=== PATIENT | male | born 1970 | race Caucasian/White ===

== ENCOUNTER → 2017-03-30 | Outpatient (CLI) | payer OTHER, BC ==
[~2017-03-30] MED LIST: PROB1CAP41 PO
[2017-03-30 13:39] LABS: BLOOD UREA NITROGEN 16 mg/dl (7-18); BUN/CREATININE RATIO 14.4 (10-20); CALCIUM 8.8 mg/dl (8.5-10.1); CARBON DIOXIDE 28 mmol/L (21-32); CHLORIDE 104 mmol/L (98-107); CREATININE 1.08 mg/dl (0.60-1.40); GLUCOSE 103 mg/dl (70-99); POTASSIUM 4.4 mmol/L (3.5-5.1); SODIUM 137 mmol/L (136-145)
[2017-03-30 13:40] LABS: BASO % 0.5 %; BASO ABS # 0.04 K/uL (0-0.2); COMPLETE YES; EOS % 3.2 %; HEMATOCRIT 45.3 % (42-52); IG% 0.4 %; LYMPH % 35.6 %; LYMPH ABS # 3.04 K/uL (1.2-3.4); MEAN CELL VOLUME 92.8 fL (80-100); MEAN CORPUSCULAR HEMOGLOBIN 31.8 pg (25-34); MEAN CORPUSCULAR HGB CONC 34.2 g/dl (32-36); MEAN PLATELET VOLUME 10.8 fL (7.4-10.4); MONO % 11.7 %; NEUT % 48.6 %; PLATELET COUNT 301 K/uL (130-400); RED BLOOD COUNT 4.88 M/uL (4.7-6.1); WHITE BLOOD COUNT 8.55 K/uL (4.8-10.8)
== END | disposition home or self-care (01) ==
LOC: C.LABBC 10:44
PROVIDERS: ATTEND Orthopaedic Surgery
DX: Z01.812 Encounter for preprocedural laboratory examination (principal); M25.522 Pain in left elbow

== ENCOUNTER → 2017-04-07 | Day surgery (SDC) | payer OTHER, BC ==
[2017-03-30 15:15] VITALS: Ht 180.3 cm; Wt 90.9 kg
[~2017-04-07] VITALS: Ht 180.3 cm; Wt 90.9 kg
[~2017-04-07] MED LIST changes: +ALBUTEROL HFA INHALER 8.5 GM INH ONE; +ATROPINE SULFATE 0.1 MG/ML 5ML SYR IV PRN; +BUPIVACAINE/EPINEPHRINE 0.25% 1:200,000 30 ML VIAL ONE; +CEFAZOLIN 2000MG IV PUSH 10 ML IV SCH; +DEXAMETHASONE SOD INJ 4 MG/ML VIAL ONE; +EpHEDrine SULFATE INJ 50 MG/ML AMP IV PRN; +FENTANYL CITRATE INJ 50 MCG/1 ML 2 ML VIAL IV PRN; +FENTANYL CITRATE INJ 50 MCG/1 ML 2 ML VIAL ONE; +HydrALAZINE HCL 20 MG/ML VIAL IV. STA; +HydrALAZINE HCL 20 MG/ML VIAL ONE; +LACTATED RINGER'S 1000ML 1,000 ML IV SCH; +LIDOCAINE HCL 2% 2 ML VIAL (20MG/ML) ONE; +MIDAZOLAM HCL 1 MG/ML 2ML VIAL ONE; +ONDANSETRON INJ 2 MG/ML 2 ML VIAL IV PRN; +ONDANSETRON INJ 2 MG/ML 2 ML VIAL ONE; +OXYC-57 PO; +OXYCODONE/ACETAMINOPHEN 5-325 TAB PO PRN; +PROPOFOL IV EMULSION 10 MG/ML 20 ML VIAL IV ONE; +ROPIVACAINE 0.5% 5 MG/ML 30 ML VIAL ONE; +SODIUM CHLORIDE 0.9% 1000ML 1,000 ML IV SCH; +SUCCINYLCHOLINE CHLORIDE 20 MG/ML 10 ML VIAL IV ONE
--- NOTE | 2017-04-07 06:45 | History & Physical Bridge - [place] ---
H&P Re-Evaluation Bridge Note: I have examined the patient, reviewed the History & Physical and in the interval since the performance of the History & Physical I have noted the following changes of clinical significance: No changes noted
--- NOTE | 2017-04-07 08:26 | [facility] Post Operative Brief Note ---
Immediate Operative Summary Operative Date Apr 07, 2017. Pre-Operative Diagnosis Left distal biceps tendon rupture Post-Operative Diagnosis Same as preop Procedure(s) Performed Left Distal Biceps Tendon Repair Surgeon Dr. Courtney Dinkey Skinner Surgeon(s) Yousuf Newton PA-C Estimated Blood Loss 5 mL Findings as above Specimens None Complication(s) None Disposition Recovery Room / PACU
--- NOTE | 2017-04-07 08:53 | Discharge Instructions-SurgCtr ---
Discharge Instructions Date of Service Apr 07, 2017. Visit Reason for Visit: Left Distal Biceps Tendon Rupture Discharge Discharge Diagnosis / Problem: SAME ABOVE Discharge Goals Goal(s): Decrease discomfort, Improve function Activity Recommendations Activity Limitations: as noted below Lifting Limitations: until after follow-up appointment Exercise/Sports Limitations: until after follow-up appointment Anesthesia . Post Anesthesia Instructions: If you have had General Anesthesia or IV Sedation: * Do not drive today. * Resume driving when surgeon permits. * Do not make important decisions or sign legal documents today. * Call surgeon for: 1. Temperature elevations greater than 101 degrees F. 2. Uncontrollable pain. 3. Excessive bleeding. 4. Persistent nausea and vomiting. 5. Medication intolerance (nausea, vomiting or rash). * For nausea and vomiting use only clear liquids such as: tea, soda, bouillon until nausea subsides, then gradually increase diet as tolerated. * If you have any concerns or questions, call your surgeon's office. If physician is unavailable and it is an emergency, call 911 or go to the nearest emergency room. . Instructions / Follow-Up Instructions / Follow-Up MEDICATIONS: * Resume previous medications unless instructed otherwise by your surgeon. * Always take pain medication on a full stomach or with food to avoid upset stomach. * Do not drink alcohol or drive while taking narcotics. * Ibuprofen or Tylenol may be taken if narcotic not needed. SPECIAL CARE INSTRUCTIONS: __ None _X_ Keep extremity elevated and iced x 48 hours; apply ice 20-30 minutes 8-10 times/day. May remove at night. _X_ Sling _X_24 hrs/day __ Remove at night __ Shoulder Immobilizer __ 24 hrs/day __ Remove at night _X_ Dressing _X_ Maintain until seen in office, may shower with plastic over site __ Remove dressings in 24-48 hours and then may shower __ Cover incisions with band-aids after showering __ Do not remove steri-strips Call physician if chills or temperature rises above 102 degrees or pain unrelieved by prescribed pain medications at . . Diet Recommendations Home Diet: no limitations Fluid Restriction: None Procedures Procedures Performed: Left Distal Biceps Tendon Repair Pending Studies Studies pending at discharge: no Work Instructions Return To Work: after follow-up Medical Emergencies . Who to Call and When: Medical Emergencies: If at any time you feel your situation is an emergency, please call 911 immediately. . Non-Emergent Contact Non-Emergency issues call your: Primary Care Provider Call Non-Emergent contact if: you have a fever, temperature is above 101.5 . . "Provider Documentation" section prepared by Yousuf Newton. .
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
[2017-04-07 10:06] VITALS: TEMP 36.3
--- NOTE | 2017-04-07 10:29 | Anesthesia Progress Nt - [facility] ---
Anesthesia Post Op Note Date & Time Apr 07, 2017 at 10:28 Vital Signs Pain Intensity: 4 Vital Signs Past 12 Hours Date Time Temp Pulse Resp B/P (MAP) Pulse Ox O2 Delivery O2 Flow Rate FiO2 04/07/17 10:03 83 18 04/07/17 10:03 84 18 97 04/07/17 10:00 133/94 04/07/17 09:58 80 12 04/07/17 09:58 80 12 97 04/07/17 09:55 142/108 04/07/17 09:53 81 11 98 04/07/17 09:53 79 11 04/07/17 09:53 36.6 76 16 142/108 96 Room Air 04/07/17 09:52 75 10 04/07/17 09:52 77 10 97 04/07/17 09:51 132/104 04/07/17 09:47 81 21 98 04/07/17 09:47 80 21 04/07/17 09:42 80 13 99 04/07/17 09:42 81 13 04/07/17 09:40 147/123 04/07/17 09:37 79 15 04/07/17 09:37 77 15 96 04/07/17 09:35 155/114 04/07/17 09:32 86 18 04/07/17 09:32 87 18 98 04/07/17 09:30 149/126 04/07/17 09:27 83 14 100 04/07/17 09:27 83 14 04/07/17 09:25 164/110 04/07/17 09:25 36.3 82 16 164/110 99 Room Air 04/07/17 09:22 82 13 100 04/07/17 09:22 84 13 04/07/17 09:20 139/114 04/07/17 09:17 87 10 100 04/07/17 09:17 87 10 04/07/17 09:15 173/126 04/07/17 09:13 156/119 04/07/17 09:12 85 10 04/07/17 09:12 84 10 100 04/07/17 09:10 168/114 04/07/17 09:09 167/134 04/07/17 09:07 97 13 168/138 96 04/07/17 09:07 93 13 04/07/17 09:05 176/115 04/07/17 09:02 94 18 100 04/07/17 09:02 95 18 04/07/17 09:00 163/128 04/07/17 08:58 151/127 04/07/17 08:57 112 14 04/07/17 08:57 36.3 99 18 163/128 98 Mask 10 04/07/17 08:57 100 18 98 04/07/17 06:31 36.7 69 16 128/95 (106) 97 Room Air Notes Mental Status: alert / awake / arousable, participated in evaluation Pt Amnestic to Procedure: Yes Nausea / Vomiting: adequately controlled Pain: adequately controlled Airway Patency, RR, SpO2: stable & adequate BP & HR: stable & adequate Hydration State: stable & adequate Anesthetic Complications: no major complications apparent
[2017-04-07 10:54] VITALS: BP 143/94; PULSE 76; O2SAT 97
== END | disposition home or self-care (01) ==
LOC: X.SURG 06:20
PROVIDERS: ATTEND Orthopaedic Surgery
DX: S46.212A Strain of muscle, fascia and tendon of other parts of biceps, left arm, initial encounter (principal); I10 Essential (primary) hypertension; Z87.891 Personal history of nicotine dependence; X58.XXXA Exposure to other specified factors, initial encounter